=== PATIENT | female | born 1975 | race Caucasian/White ===

== ENCOUNTER 2017-10-04 00:55 | Day surgery (SDC) | payer BC ==
[~2017-10-04 00:55] MED LIST: ACET325; ALBU90OI INH; AMOCLA875 PO; AZIT250 PO; METPRE4DP PO; NAPR500; OXYC5 PO; PRENZ; Percocet 10-321 EACH PO; TRAM50 PO
[2017-10-04 08:50] LABS: Hematocrit 34.6 % (33.0-51.0); Hemoglobin 11.1 g/dL (11.5-16.0); Mean Corpuscular HGB 28.8 pg (26.0-34.0); Mean Corpuscular HGB Conc 32.1 g/dL (31.5-36.5); Mean Corpuscular Volume 90 fL (80-100); Mean Platelet Volume 10.1 fL (9.1-12.4); Platelet Count 218 K/mm3 (150-400); RDW Coefficient Variation 17.6 % (11.7-14.2); RDW Standard Deviation 58.4 fL (35.1-46.3); Red Blood Cell Count 3.85 M/mm3 (3.80-5.20); White Blood Cell Count 11.22 K/mm3 (4.00-11.30)
[2017-10-04 09:09] LABS: Alanine Aminotransfer (ALT/SGP 37 U/L (12-78); Albumin, Blood 2.8 g/dL (3.4-5.0); Albumin/Globulin Ratio 0.5 (0.8-1.8); Alk Phos 83 U/L (50-136); Anion Gap 7 mmol/L (6-16); Aspartate Aminotrans (AST/SGOT 16 U/L (12-37); Bilirubin, Total 0.3 mg/dL (0.1-1.0); Blood Urea Nitrogen 15 mg/dL (8-24); Bun/Creatinine Ratio 36.5 (12.0-20.0); CO2, Blood 27 mmol/L (21-32); Chloride, Blood 99 mmol/L (98-108); Creatinine, Blood 0.41 mg/dL (0.40-1.00); Glomerular Filtration Rate >60 (60-); Glucose, Blood 106 mg/dL (70-99); Magnesium, Blood 2.3 mg/dL (1.6-2.4); Phosphorus, Blood 3.2 mg/dL (2.5-4.9); Potassium, Blood 4.7 mmol/L (3.5-5.5); Sodium, Blood 133 mmol/L (136-145); Total Protein, Blood 8.8 g/dL (6.4-8.2)
[2017-10-04 09:19] LABS: BAND PERCENT MAN 2 % (0-8); EOSINOPHILS PERCENT MAN 0 % (0-6); LYMPHOCYTES ABSOLUTE MAN 1.57 K/mm3 (0.84-5.20); LYMPHOCYTES PERCENT MAN 14 % (21-46); MONOCYTES PERCENT MAN 0 % (4-13); TOTAL CELLS COUNTED 100
[2017-10-04 09:21] LABS: BASOPHILS PERCENT MAN 0 % (0-2); NEUTROPHILS ABSOLUTE MAN 9.64 K/mm3 (1.96-9.15); SEG NEUTROPHILS PERCENT MAN 84 % (41-73)
[2017-10-17] MEDS ORDERED: MIRALAX17 GM PO (09:40)
[2017-10-17] MEDS ORDERED: ERGO400 PO (09:40)
[2017-10-17] MEDS ORDERED: ACYC800 PO (09:41)
[2017-10-17] MEDS ORDERED: OXYC10TA19 PO (09:41)
[2017-10-17] MEDS ORDERED: VENL75ER PO (09:42)
[2017-10-17] MEDS ORDERED: GABA600 PO (09:42)
[2017-10-17] MEDS ORDERED: ZOLP5 PO (09:42)
[2017-10-17] MEDS ORDERED: Omeprazole20 M1 PO (09:42)
[2017-10-17] MEDS ORDERED: ASPI81CH PO (09:43)
[2017-10-17] MEDS ORDERED: Bactrim Ds Tab1 EACH PO (09:43)
[2017-10-17] MEDS ORDERED: LORA1 PO (09:43)
[2017-10-17] MEDS ORDERED: LEVO750 PO (09:44)
[2017-10-17] MEDS ORDERED: Diflucan200 MG PO (09:44)
[2017-10-17] MEDS ORDERED: MORPHINE SULFAT30 M2 PO (09:45)
== END 2017-10-04 12:00 | disposition home or self-care (01) ==
LOC: ATC 00:55
PROVIDERS: Internal Medicine Hematology & Oncology
DX: C90.00 Multiple myeloma not having achieved remission (principal); D63.0 Anemia in neoplastic disease; Z45.2 Encounter for adjustment and management of vascular access device; F17.210 Nicotine dependence, cigarettes, uncomplicated; Z79.899 Other long term (current) drug therapy; Z88.5 Allergy status to narcotic agent
CPT/HCPCS: 36592; 80053; 83735; 84100; 85025

== ENCOUNTER 2017-10-06 12:04 | Emergency (ER) | payer BC ==
[~2017-10-06] VITALS: Ht 182.9 cm; Wt 99.8 kg
[2017-10-06] MEDS ORDERED: ASPI81CH PO (12:55)
[2017-10-06] MEDS ORDERED: FLUC200 PO (12:55)
[2017-10-06] MEDS ORDERED: ACYC800 PO (12:55)
[2017-10-06] MEDS ORDERED: Halobetasol Pro15 GM TOP (12:56)
[2017-10-06] MEDS ORDERED: GABA300 PO (12:56)
[2017-10-06] MEDS ORDERED: MORP30ER PO (12:57)
[2017-10-06] MEDS ORDERED: LORA1 PO (12:57)
[2017-10-06] MEDS ORDERED: LEVFLO500 PO (12:57)
[2017-10-06] MEDS ORDERED: [UNRECOGNIZED DRUG - SUPPLY] PO (12:59)
[2017-10-06] MEDS ORDERED: Omeprazole20 M1 PO (13:00)
[2017-10-06] MEDS ORDERED: OXYC10TA19 PO (13:00)
[2017-10-06] MEDS ORDERED: SENN187 PO (13:01)
[2017-10-06] MEDS ORDERED: GAVILAX17 GM PO (13:01)
[2017-10-06] MEDS ORDERED: Bactrim Ds Tab1 EACH PO (13:02)
[2017-10-06] MEDS ORDERED: VENL75ER PO (13:03)
[2017-10-06] MEDS ORDERED: ZOLP5 PO (13:03)
[2017-10-17] MEDS ORDERED: ERGO400 PO (09:40)
[2017-10-17] MEDS ORDERED: MIRALAX17 GM PO (09:40)
[2017-10-17] MEDS ORDERED: ACYC800 PO (09:41)
[2017-10-17] MEDS ORDERED: OXYC10TA19 PO (09:41)
[2017-10-17] MEDS ORDERED: Omeprazole20 M1 PO (09:42)
[2017-10-17] MEDS ORDERED: GABA600 PO (09:42)
[2017-10-17] MEDS ORDERED: VENL75ER PO (09:42)
[2017-10-17] MEDS ORDERED: ZOLP5 PO (09:42)
[2017-10-17] MEDS ORDERED: ASPI81CH PO (09:43)
[2017-10-17] MEDS ORDERED: Bactrim Ds Tab1 EACH PO (09:43)
[2017-10-17] MEDS ORDERED: LORA1 PO (09:43)
[2017-10-17] MEDS ORDERED: Diflucan200 MG PO (09:44)
[2017-10-17] MEDS ORDERED: LEVO750 PO (09:44)
[2017-10-17] MEDS ORDERED: MORPHINE SULFAT30 M2 PO (09:45)
== END 2017-10-06 13:07 | disposition home or self-care (01) ==
LOC: ER 12:04
DX: L25.8 Unspecified contact dermatitis due to other agents (principal); Z88.5 Allergy status to narcotic agent; Z79.899 Other long term (current) drug therapy; Z79.82 Long term (current) use of aspirin; Z79.2 Long term (current) use of antibiotics; Z79.891 Long term (current) use of opiate analgesic; F17.200 Nicotine dependence, unspecified, uncomplicated
CPT/HCPCS: 99282

== ENCOUNTER 2017-10-08 00:30 | Day surgery (SDC) | payer BC ==
[~2017-10-08 00:30] MED LIST changes: +ACYC800 PO; +ASPI81CH PO; +Bactrim Ds Tab1 EACH PO; +FLUC200 PO; +GABA300 PO; +GAVILAX17 GM PO; +Halobetasol Pro15 GM TOP; +LEVFLO500 PO; +LORA1 PO; +MORP30ER PO; +OXYC10TA19 PO; +Omeprazole20 M1 PO; +SENN187 PO; +VENL75ER PO; +ZOLP5 PO; +[UNRECOGNIZED DRUG - SUPPLY] PO
[2017-10-08 09:01] LABS: BASOPHILS ABSOLUTE AUTO 0.02 K/mm3 (0.00-0.23); BASOPHILS PERCENT AUTO 1 % (0-2); EOSINOPHILS ABSOLUTE AUTO 0.02 K/mm3 (0.00-0.68); EOSINOPHILS PERCENT AUTO 1 % (0-6); Hematocrit 31.9 % (33.0-51.0); Hemoglobin 10.3 g/dL (11.5-16.0); IMMATURE GRAN ABSOLUTE AUTO 0.02 K/mm3 (0.00-0.10); IMMATURE GRAN PERCENT AUTO 1 % (0-1); LYMPHOCYTES ABSOLUTE AUTO 1.05 K/mm3 (0.84-5.20); LYMPHOCYTES PERCENT AUTO 41 % (21-46); MONOCYTES ABSOLUTE AUTO 1.03 K/mm3 (0.16-1.47); MONOCYTES PERCENT AUTO 40 % (4-13); Mean Corpuscular HGB 29.3 pg (26.0-34.0); Mean Corpuscular HGB Conc 32.3 g/dL (31.5-36.5); Mean Corpuscular Volume 91 fL (80-100); Mean Platelet Volume 10.5 fL (9.1-12.4); NEUTROPHILS ABSOLUTE AUTO 0.42 K/mm3 (1.96-9.15); NEUTROPHILS PERCENT AUTO 16 % (41-73); Platelet Count 140 K/mm3 (150-400); RDW Coefficient Variation 17.5 % (11.7-14.2); Red Blood Cell Count 3.52 M/mm3 (3.80-5.20); White Blood Cell Count 2.56 K/mm3 (4.00-11.30)
[2017-10-08 09:32] LABS: Alanine Aminotransfer (ALT/SGP 32 U/L (12-78); Albumin, Blood 2.7 g/dL (3.4-5.0); Albumin/Globulin Ratio 0.5 (0.8-1.8); Alk Phos 87 U/L (50-136); Anion Gap 6 mmol/L (6-16); Aspartate Aminotrans (AST/SGOT 21 U/L (12-37); Bilirubin, Total 0.2 mg/dL (0.1-1.0); Blood Urea Nitrogen 8 mg/dL (8-24); Bun/Creatinine Ratio 19.9 (12.0-20.0); CO2, Blood 28 mmol/L (21-32); Calcium, Blood 8.6 mg/dL (8.5-10.1); Chloride, Blood 104 mmol/L (98-108); Globulin, Blood 5.5 g/dL (2.2-4.0); Glomerular Filtration Rate >60 (60-); Glucose, Blood 120 mg/dL (70-99); Magnesium, Blood 2.1 mg/dL (1.6-2.4); Phosphorus, Blood 2.6 mg/dL (2.5-4.9); Potassium, Blood 3.9 mmol/L (3.5-5.5); Sodium, Blood 138 mmol/L (136-145); Total Protein, Blood 8.2 g/dL (6.4-8.2)
[2017-10-17] MEDS ORDERED: MIRALAX17 GM PO (09:40)
[2017-10-17] MEDS ORDERED: ERGO400 PO (09:40)
[2017-10-17] MEDS ORDERED: ACYC800 PO (09:41)
[2017-10-17] MEDS ORDERED: OXYC10TA19 PO (09:41)
[2017-10-17] MEDS ORDERED: Omeprazole20 M1 PO (09:42)
[2017-10-17] MEDS ORDERED: GABA600 PO (09:42)
[2017-10-17] MEDS ORDERED: ZOLP5 PO (09:42)
[2017-10-17] MEDS ORDERED: VENL75ER PO (09:42)
[2017-10-17] MEDS ORDERED: Bactrim Ds Tab1 EACH PO (09:43)
[2017-10-17] MEDS ORDERED: LORA1 PO (09:43)
[2017-10-17] MEDS ORDERED: ASPI81CH PO (09:43)
[2017-10-17] MEDS ORDERED: Diflucan200 MG PO (09:44)
[2017-10-17] MEDS ORDERED: LEVO750 PO (09:44)
[2017-10-17] MEDS ORDERED: MORPHINE SULFAT30 M2 PO (09:45)
== END 2017-10-08 08:48 | disposition home or self-care (01) ==
LOC: ATC 00:30
PROVIDERS: Internal Medicine Hematology & Oncology
DX: C90.00 Multiple myeloma not having achieved remission (principal); D63.0 Anemia in neoplastic disease; F17.210 Nicotine dependence, cigarettes, uncomplicated
CPT/HCPCS: 36592; 80053; 83735; 84100; 85025

== ENCOUNTER 2017-10-11 01:24 | Day surgery (SDC) | payer BC ==
[2017-10-11 09:35] LABS: BASOPHILS ABSOLUTE AUTO 0.02 K/mm3 (0.00-0.23); BASOPHILS PERCENT AUTO 0 % (0-2); EOSINOPHILS ABSOLUTE AUTO 0.01 K/mm3 (0.00-0.68); EOSINOPHILS PERCENT AUTO 0 % (0-6); Hematocrit 34.7 % (33.0-51.0); Hemoglobin 11.2 g/dL (11.5-16.0); IMMATURE GRAN ABSOLUTE AUTO 0.08 K/mm3 (0.00-0.10); IMMATURE GRAN PERCENT AUTO 1 % (0-1); LYMPHOCYTES ABSOLUTE AUTO 1.46 K/mm3 (0.84-5.20); LYMPHOCYTES PERCENT AUTO 21 % (21-46); MONOCYTES ABSOLUTE AUTO 2.24 K/mm3 (0.16-1.47); MONOCYTES PERCENT AUTO 32 % (4-13); Mean Corpuscular HGB 29.5 pg (26.0-34.0); Mean Corpuscular HGB Conc 32.3 g/dL (31.5-36.5); Mean Corpuscular Volume 91 fL (80-100); Mean Platelet Volume 10.7 fL (9.1-12.4); NEUTROPHILS ABSOLUTE AUTO 3.19 K/mm3 (1.96-9.15); NEUTROPHILS PERCENT AUTO 46 % (41-73); Platelet Count 203 K/mm3 (150-400); RDW Coefficient Variation 18.2 % (11.7-14.2); RDW Standard Deviation 59.9 fL (35.1-46.3)
[2017-10-11 09:55] LABS: Alanine Aminotransfer (ALT/SGP 39 U/L (12-78); Albumin, Blood 2.9 g/dL (3.4-5.0); Albumin/Globulin Ratio 0.5 (0.8-1.8); Alk Phos 84 U/L (50-136); Anion Gap 7 mmol/L (6-16); Aspartate Aminotrans (AST/SGOT 32 U/L (12-37); Bilirubin, Total 0.1 mg/dL (0.1-1.0); Blood Urea Nitrogen 5 mg/dL (8-24); Bun/Creatinine Ratio 10.3 (12.0-20.0); CO2, Blood 27 mmol/L (21-32); Calcium, Blood 8.8 mg/dL (8.5-10.1); Chloride, Blood 103 mmol/L (98-108); Creatinine, Blood 0.49 mg/dL (0.40-1.00); Globulin, Blood 5.9 g/dL (2.2-4.0); Glomerular Filtration Rate >60 (60-); Glucose, Blood 86 mg/dL (70-99); Magnesium, Blood 2.4 mg/dL (1.6-2.4); Phosphorus, Blood 3.1 mg/dL (2.5-4.9); Potassium, Blood 4.2 mmol/L (3.5-5.5); Sodium, Blood 137 mmol/L (136-145); Total Protein, Blood 8.8 g/dL (6.4-8.2)
[2017-10-12 13:21] LABS: Albumin 3.4 g/dL (3.5-5.0); Albumin 42.1 % (45.0-80.0); Monoclonal Protein 2.8 g/dL; Monoclonal Protien % 35.6 %
[2017-10-17] MEDS ORDERED: ERGO400 PO (09:40)
[2017-10-17] MEDS ORDERED: MIRALAX17 GM PO (09:40)
[2017-10-17] MEDS ORDERED: OXYC10TA19 PO (09:41)
[2017-10-17] MEDS ORDERED: ACYC800 PO (09:41)
[2017-10-17] MEDS ORDERED: Omeprazole20 M1 PO (09:42)
[2017-10-17] MEDS ORDERED: VENL75ER PO (09:42)
[2017-10-17] MEDS ORDERED: ZOLP5 PO (09:42)
[2017-10-17] MEDS ORDERED: GABA600 PO (09:42)
[2017-10-17] MEDS ORDERED: Bactrim Ds Tab1 EACH PO (09:43)
[2017-10-17] MEDS ORDERED: LORA1 PO (09:43)
[2017-10-17] MEDS ORDERED: ASPI81CH PO (09:43)
[2017-10-17] MEDS ORDERED: Diflucan200 MG PO (09:44)
[2017-10-17] MEDS ORDERED: LEVO750 PO (09:44)
[2017-10-17] MEDS ORDERED: MORPHINE SULFAT30 M2 PO (09:45)
== END 2017-10-11 09:00 | disposition home or self-care (01) ==
LOC: ATC 01:24
PROVIDERS: Internal Medicine Hematology & Oncology
DX: C90.00 Multiple myeloma not having achieved remission (principal); D63.0 Anemia in neoplastic disease; F17.210 Nicotine dependence, cigarettes, uncomplicated
CPT/HCPCS: 36415; 80053; 83735; 83883; 84100; 84165; 85025; 86334; 99213

== ENCOUNTER 2017-10-19 10:14 | Day surgery (SDC) | payer BC ==
[~2017-10-19] VITALS: Ht 182.9 cm; Wt 100.7 kg
[~2017-10-19 10:14] MED LIST changes: +Diflucan200 MG PO; +ERGO400 PO; +GABA600 PO; +LEVO750 PO; +MIRALAX17 GM PO; +MORPHINE SULFAT30 M2 PO
== END 2017-10-19 23:14 | disposition home or self-care (01) ==
LOC: ORSCMMR 10:14 → ORD 11:45 → ORSCMMR 11:45
PROVIDERS: Surgery
PROC: 0JH60WZ Insertion of Totally Implantable Vascular Access Device into Chest Subcutaneous Tissue and Fascia, Open Approach (ICD-10-PCS; principal; 2017-10-19 11:45)
DX: C90.00 Multiple myeloma not having achieved remission (principal); F41.8 Other specified anxiety disorders; F17.210 Nicotine dependence, cigarettes, uncomplicated; Z79.82 Long term (current) use of aspirin; Z79.899 Other long term (current) drug therapy
CPT/HCPCS: 77001; C1788; J0690; J1100; J1642; J2250; J2405; J3010; J7120

== ENCOUNTER → 2017-11-20 | Outpatient (CLI) | payer BC ==
[2017-11-20 07:56] LABS: Performing Lab LABCORP; Test Name 121228
[2017-11-20 08:48] LABS: Protein, Urine Quantitative 8.7 mg/dL (0.0-11.9)
== END ==
LOC: LAB 07:48 → LAB SHORT 07:48
DX: C90.00 Multiple myeloma not having achieved remission (principal)
CPT/HCPCS: 81050; 84156

== ENCOUNTER → 2018-11-26 | Outpatient (CLI) | payer BC ==
[2018-11-29 13:06] LABS: A/G RATIO 1.9 (0.7-1.7); ALPHA-1-GLOBULIN 0.2 g/dL (0.0-0.4); ALPHA-2-GLOBULIN 0.6 g/dL (0.4-1.0); BETA GLOBULIN 1.1 g/dL (0.7-1.3); GAMMA GLOBULIN 0.4 g/dL (0.4-1.8); GLOBULIN, TOTAL 2.2 g/dL (2.2-3.9); IMMUNOFIXATION RESULT, SERUM Comment: (.); IMMUNOGLOBULIN A, QN, SERUM 180 mg/dL (87-352); IMMUNOGLOBULIN G, QN, SERUM 338 mg/dL (700-1600); IMMUNOGLOBULIN M, QN, SERUM <5 mg/dL (26-217); M-SPIKE Not Observed g/dL (Not Observed); PROTEIN, TOTAL, SERUM 6.2 g/dL (6.0-8.5)
== END | disposition home or self-care (01) ==
LOC: LAB SHORT 17:03 → LAB 17:03
PROVIDERS: Internal Medicine Hematology & Oncology
DX: C90.00 Multiple myeloma not having achieved remission (principal)
CPT/HCPCS: 82784; 84165; 86334

== ENCOUNTER 2019-02-19 15:07 | Day surgery (SDC) | payer BC ==
[2019-02-19] MEDS ORDERED: PREG50 PO (16:17)
[2019-02-19] MEDS ORDERED: NEPHRO-VITE RX1 EACH PO (16:18)
[2019-02-19] MEDS ORDERED: THERA1 EACH PO (16:18)
== END 2019-02-19 23:04 | disposition home or self-care (01) ==
LOC: RAD 15:07
DX: C90.00 Multiple myeloma not having achieved remission (principal)
CPT/HCPCS: 36598; Q9967

== ENCOUNTER 2019-02-19 15:42 | Day surgery (SDC) | payer BC ==
[2019-02-19] MEDS ORDERED: PREG50 PO (16:17)
[2019-02-19] MEDS ORDERED: NEPHRO-VITE RX1 EACH PO (16:18)
[2019-02-19] MEDS ORDERED: THERA1 EACH PO (16:18)
== END 2019-02-19 16:26 | disposition home or self-care (01) ==
LOC: ATC 15:42
DX: C90.00 Multiple myeloma not having achieved remission (principal); D63.0 Anemia in neoplastic disease; F32.9 Major depressive disorder, single episode, unspecified; E66.9 Obesity, unspecified; F17.210 Nicotine dependence, cigarettes, uncomplicated; Z79.899 Other long term (current) drug therapy; Z88.5 Allergy status to narcotic agent; Z68.31 Body mass index [BMI] 31.0-31.9, adult
CPT/HCPCS: 96523; J1642

== ENCOUNTER → 2019-05-26 | Outpatient (CLI) | payer BC ==
[~2019-05-26] MED LIST changes: +NEPHRO-VITE RX1 EACH PO; +PREG50 PO; +THERA1 EACH PO
== END | disposition home or self-care (01) ==
LOC: LAB SHORT 07:57 → PLD 07:57
DX: B35.1 Tinea unguium (principal)
CPT/HCPCS: 88305; 88312

== ENCOUNTER → 2020-04-05 | Outpatient (CLI) | payer BC ==
[2020-04-05 12:44] LABS: BASOPHILS ABSOLUTE AUTO 0.03 K/mm3 (0.00-0.23); BASOPHILS PERCENT AUTO 0 % (0-2); EOSINOPHILS ABSOLUTE AUTO 0.28 K/mm3 (0.00-0.68); EOSINOPHILS PERCENT AUTO 4 % (0-6); Hematocrit 40.7 % (33.0-51.0); Hemoglobin 13.5 g/dL (11.5-16.0); IMMATURE GRAN ABSOLUTE AUTO 0.01 K/mm3 (0.00-0.10); IMMATURE GRAN PERCENT AUTO 0 % (0-1); LYMPHOCYTES ABSOLUTE AUTO 1.32 K/mm3 (0.84-5.20); LYMPHOCYTES PERCENT AUTO 19 % (21-46); MONOCYTES ABSOLUTE AUTO 0.84 K/mm3 (0.16-1.47); MONOCYTES PERCENT AUTO 12 % (4-13); Mean Corpuscular HGB 30.8 pg (26.0-34.0); Mean Corpuscular HGB Conc 33.2 g/dL (31.5-36.5); Mean Corpuscular Volume 93 fL (80-100); Mean Platelet Volume 10.7 fL (9.1-12.4); NEUTROPHILS ABSOLUTE AUTO 4.36 K/mm3 (1.96-9.15); NEUTROPHILS PERCENT AUTO 64 % (41-73); Platelet Count 242 K/mm3 (150-400); RDW Coefficient Variation 13.3 % (11.7-14.2); RDW Standard Deviation 45.1 fL (35.1-46.3); Red Blood Cell Count 4.39 M/mm3 (3.80-5.20); White Blood Cell Count 6.84 K/mm3 (4.00-11.30)
[2020-04-05 12:55] LABS: Alanine Aminotransfer (ALT/SGP 29 U/L (12-78); Albumin, Blood 3.9 g/dL (3.4-5.0); Albumin/Globulin Ratio 1.3 (0.8-1.8); Alk Phos 69 U/L (50-136); Anion Gap 5 mmol/L (6-16); Aspartate Aminotrans (AST/SGOT 16 U/L (12-37); Bilirubin, Total 0.5 mg/dL (0.1-1.0); Blood Urea Nitrogen 10 mg/dL (8-24); Bun/Creatinine Ratio 20.4 (12.0-20.0); CO2, Blood 27 mmol/L (21-32); Calcium, Blood 9.2 mg/dL (8.5-10.1); Chloride, Blood 108 mmol/L (98-108); Creatinine, Blood 0.49 mg/dL (0.40-1.00); Glomerular Filtration Rate >60 (60-); Glucose, Blood 127 mg/dL (70-99); Potassium, Blood 3.4 mmol/L (3.5-5.5); Sodium, Blood 140 mmol/L (136-145); Total Protein, Blood 6.9 g/dL (6.4-8.2)
[2020-04-07 15:08] LABS: A/G RATIO 1.8 (0.7-1.7); ALPHA-1-GLOBULIN 0.2 g/dL (0.0-0.4); ALPHA-2-GLOBULIN 0.8 g/dL (0.4-1.0); BETA GLOBULIN 1.1 g/dL (0.7-1.3); GAMMA GLOBULIN 0.2 g/dL (0.4-1.8); GLOBULIN, TOTAL 2.3 g/dL (2.2-3.9); IMMUNOGLOBULIN A, QN, SERUM 219 mg/dL (87-352); IMMUNOGLOBULIN G, QN, SERUM 205 mg/dL (586-1602); IMMUNOGLOBULIN M, QN, SERUM <5 mg/dL (26-217); M-SPIKE Comment: g/dL (Not Observed); PROTEIN, TOTAL, SERUM 6.3 g/dL (6.0-8.5)
== END | disposition home or self-care (01) ==
LOC: LAB SHORT 12:17 → LAB 12:17
PROVIDERS: Internal Medicine Hematology & Oncology
DX: C90.00 Multiple myeloma not having achieved remission (principal)
CPT/HCPCS: 80053; 82784; 84165; 85025; 86334

== ENCOUNTER → 2021-07-21 | Outpatient (CLI) | payer BC | END | disposition home or self-care (01) | LOC: LAB SHORT 08:13 | DX: L60.2 Onychogryphosis (principal); B35.1 Tinea unguium | CPT/HCPCS: 88305; 88312 ==

== ENCOUNTER → 2021-08-25 | Outpatient (CLI) | payer BC | END | disposition home or self-care (01) | LOC: PLD 08:13 → LAB SHORT 08:13 | DX: R23.4 Changes in skin texture (principal) | CPT/HCPCS: 88305; 88312 ==

== ENCOUNTER → 2021-11-17 | Outpatient (CLI) | payer BC | END | disposition home or self-care (01) | LOC: LAB 16:23 → LAB SHORT 16:23 | DX: L03.031 Cellulitis of right toe (principal); L60.0 Ingrowing nail; L60.2 Onychogryphosis | CPT/HCPCS: 87070; 87205 ==

== ENCOUNTER → 2021-11-17 | Outpatient (CLI) | payer BC | END | disposition home or self-care (01) | LOC: LAB SHORT 08:06 → PLD 08:06 | DX: M86.9 Osteomyelitis, unspecified (principal) | CPT/HCPCS: 88305; 88311 ==

== ENCOUNTER → 2021-11-21 | Outpatient (CLI) | payer BC | LOC: LAB 18:09 → LAB SHORT 18:09 | DX: L03.031 Cellulitis of right toe (principal); L03.032 Cellulitis of left toe; M86.272 Subacute osteomyelitis, left ankle and foot; M86.472 Chronic osteomyelitis with draining sinus, left ankle and foot | CPT/HCPCS: 87070; 87205 ==

== ENCOUNTER 2022-03-03 17:16 | Emergency (ER) | payer BC ==
[~2022-03-03] VITALS: Ht 177.8 cm; Wt 108.9 kg
[2022-03-03] MEDS ORDERED: POMALYST4 MG PO (17:50)
[2022-03-03] MEDS ORDERED: OMEP20ER PO (17:50)
[2022-03-03] MEDS ORDERED: METHIMAZOLE PO (17:51)
[2022-03-03] MEDS ORDERED: DEXA4 PO (17:52)
[2022-03-03 17:59] LABS: BASOPHILS ABSOLUTE AUTO 0.05 K/mm3 (0.00-0.23); BASOPHILS PERCENT AUTO 1 % (0-2); EOSINOPHILS ABSOLUTE AUTO 0.01 K/mm3 (0.00-0.68); EOSINOPHILS PERCENT AUTO 0 % (0-6); Hemoglobin 13.8 g/dL (11.5-16.0); IMMATURE GRAN ABSOLUTE AUTO 0.02 K/mm3 (0.00-0.10); IMMATURE GRAN PERCENT AUTO 0 % (0-1); LYMPHOCYTES ABSOLUTE AUTO 1.18 K/mm3 (0.84-5.20); LYMPHOCYTES PERCENT AUTO 18 % (21-46); MONOCYTES ABSOLUTE AUTO 1.47 K/mm3 (0.16-1.47); MONOCYTES PERCENT AUTO 23 % (4-13); Mean Corpuscular HGB 30.4 pg (26.0-34.0); Mean Corpuscular HGB Conc 33.7 g/dL (31.5-36.5); Mean Corpuscular Volume 90 fL (80-100); Mean Platelet Volume 10.2 fL (9.1-12.4); NEUTROPHILS ABSOLUTE AUTO 3.68 K/mm3 (1.96-9.15); NEUTROPHILS PERCENT AUTO 57 % (41-73); Platelet Count 227 K/mm3 (150-400); RDW Coefficient Variation 15.2 % (11.7-14.2); RDW Standard Deviation 50.6 fL (35.1-46.3); Red Blood Cell Count 4.54 M/mm3 (3.80-5.20); White Blood Cell Count 6.41 K/mm3 (4.00-11.30)
[2022-03-03 18:13] LABS: Albumin, Blood 3.6 g/dL (3.4-5.0); Albumin/Globulin Ratio 0.9 (0.8-1.8); Bilirubin, Total 0.4 mg/dL (0.1-1.0); Bun/Creatinine Ratio 14.8 (12.0-20.0); Calcium, Blood 9.7 mg/dL (8.5-10.1); Creatinine, Blood 0.74 mg/dL (0.40-1.00); Globulin, Blood 3.9 g/dL (2.2-4.0); Potassium, Blood 3.5 mmol/L (3.5-5.5); Total Protein, Blood 7.5 g/dL (6.4-8.2)
== END 2022-03-03 20:55 | disposition home or self-care (01) ==
LOC: ER 17:16
PROVIDERS: Emergency Medicine
DX: R55 Syncope and collapse (principal); F17.200 Nicotine dependence, unspecified, uncomplicated; Z85.79 Personal history of other malignant neoplasms of lymphoid, hematopoietic and related tissues; Z79.899 Other long term (current) drug therapy; Z88.5 Allergy status to narcotic agent; Z91.09 Other allergy status, other than to drugs and biological substances; Z79.52 Long term (current) use of systemic steroids
CPT/HCPCS: 36415; 80053; 83880; 84484; 85025; 93005; 93010; J7030

== ENCOUNTER → 2022-06-06 | Outpatient (CLI) | payer BC ==
[~2022-06-06] MED LIST changes: +DEXA4 PO; +METHIMAZOLE PO; +OMEP20ER PO; +POMALYST4 MG PO
== END | disposition home or self-care (01) ==
LOC: LAB SHORT 08:33
DX: L72.11 Pilar cyst (principal)
CPT/HCPCS: 88304

== ENCOUNTER 2023-01-11 09:06 | Day surgery (SDC) | payer BC ==
[~2023-01-11] VITALS: Ht 180.3 cm; Wt 115.7 kg
[2023-01-11] MEDS ORDERED: SKYRIZI PE150 MG/1 M SQ (09:44)
--- NOTE | 2023-01-11 09:50 | NUR ---
01/11/23 0950 Flor Doss 0901 TETRACAINE ADMINISTERED TO THE R EYE, PLEDGET PLACED IN THE R EYE AT 0946
[2023-01-11 10:50] VITALS: BP 137/87
== END 2023-01-11 10:59 | disposition home or self-care (01) ==
LOC: ORSCSDS 09:06
PROVIDERS: Ophthalmology
PROC: 08DJ3ZZ Extraction of Right Lens, Percutaneous Approach (ICD-10-PCS; principal; 2023-01-11 10:30)
DX: H25.11 Age-related nuclear cataract, right eye (principal); K21.9 Gastro-esophageal reflux disease without esophagitis; J45.909 Unspecified asthma, uncomplicated; Z79.899 Other long term (current) drug therapy
CPT/HCPCS: J2001; J2250; J3010; J3301; J7040; V2632

== ENCOUNTER 2023-01-18 09:22 | Day surgery (SDC) | payer BC ==
[~2023-01-18] VITALS: Ht 180.3 cm; Wt 113.0 kg
[~2023-01-18 09:22] MED LIST changes: +SKYRIZI PE150 MG/1 M SQ
--- NOTE | 2023-01-18 09:50 | NUR ---
01/18/23 0950 Flor Doss TETRACAINE TO THE L EYE AT 0940, PLEDGET PLACED AT 0943
[2023-01-18 10:49] VITALS: BP 118/60
--- NOTE | 2023-01-18 10:55 | NUR ---
01/18/23 1055 Grey Gregory IV REMOVED INTACT. SITE WNL.
== END 2023-01-18 10:58 | disposition home or self-care (01) ==
LOC: ORSCSDS 09:22
PROVIDERS: Ophthalmology
PROC: 08RK3JZ Replacement of Left Lens with Synthetic Substitute, Percutaneous Approach (ICD-10-PCS; principal; 2023-01-18 10:30)
DX: H25.12 Age-related nuclear cataract, left eye (principal); Z96.1 Presence of intraocular lens; F41.9 Anxiety disorder, unspecified; E07.9 Disorder of thyroid, unspecified; E66.9 Obesity, unspecified; Z68.35 Body mass index [BMI] 35.0-35.9, adult; Z79.899 Other long term (current) drug therapy; K21.9 Gastro-esophageal reflux disease without esophagitis; J45.909 Unspecified asthma, uncomplicated; F17.210 Nicotine dependence, cigarettes, uncomplicated
CPT/HCPCS: J2250; J2704; J3010; J3301; J7040; V2632

== ENCOUNTER → 2023-07-12 | Outpatient (CLI) | payer BC | LOC: LAB 08:06 → LAB SHORT 08:06 | DX: D48.5 Neoplasm of uncertain behavior of skin (principal) | CPT/HCPCS: 88305 ==